=== PATIENT | female | born 1970 | race African-American/Black ===

== ENCOUNTER 2016-11-12 19:44 | Emergency (ER) | payer BC ==
[~2016-11-12] VITALS: Ht 175.3 cm; Wt 80.7 kg
[2016-11-12] MEDS ORDERED: ASPIRIN 325 MG TABLET ONE (20:21)
[2016-11-12 20:23] LABS: BASOPHILS % (AUTO) 0.4 % (0.0-2.0); DIFF TOTAL % 100 %; EOSINOPHILS # (AUTO) 0.1 /CMM (0.0-0.7); EOSINOPHILS % (AUTO) 0.6 % (0.0-6.0); HEMATOCRIT 35 % (33-45); HEMOGLOBIN 11.6 g/dL (11.5-14.8); LYMPHOCYTES # (AUTO) 2.5 /CMM (0.8-4.8); LYMPHOCYTES % (AUTO) 24.2 % (20.0-44.0); MEAN CORPUSCULAR HEMOGLOBIN 25 PG (26.0-33.0); MEAN CORPUSCULAR HGB CONC 33 g/dl (31.0-36.0); MEAN CORPUSCULAR VOLUME 77 fL (82-100); MONOCYTES # (AUTO) 0.5 /CMM (0.1-1.30); MONOCYTES % (AUTO) 5.1 % (2.0-12.0); NEUTROPHILS # (AUTO) 7.1 /CMM (1.8-8.9); NEUTROPHILS % (AUTO) 69.7 % (43.0-81.0); PLATELET COUNT (AUTO) 241 /CMM (150-450); RED BLOOD CELL COUNT(AUTO) 4.58 MIL/uL (4.0-5.2); WHITE BLOOD COUNT (AUTO) 10.2 K/uL (4.3-11.0)
[2016-11-12 20:30] LABS: ANION GAP 12 (5-14); CALCIUM, SERUM 8.5 mg/dL (8.5-10.1); CARBON DIOXIDE 29 mmol/L (21-32); CHLORIDE 107 mmol/L (98-107); CREATININE 0.9 mg/dL (0.6-1.3); GFR 82 mL/min (>60); GLUCOSE 94 mg/dL (74-106); POTASSIUM 3.7 mmol/L (3.5-5.1); SODIUM SERUM 144 mmol/L (136-145); UREA NITROGEN, BLOOD 8 mg/dL (7-18)
[2016-11-12] MEDS ORDERED: ASPIRIN 325 MG TABLET PO ONE (20:30)
[2016-11-12 20:38] LABS: TROPONIN I < 0.017 ng/mL (0.00-0.056)
[2016-11-12 20:45] LABS: INR 0.99 (0.87-1.13); PROTHROMBIN TIME 10.7 SECS (9.5-12.7)
[2016-11-12] MEDS ORDERED: IOHEXOL-300 100 ML VIAL IV ONE (21:37)
[2016-11-12] MEDS ORDERED: IV NS 0.9% 250 ML IV ONE (21:37)
[2016-11-12] MEDS ORDERED: CT SWABBABLE VALVE TRANS SET 1 EA INFUS.SET MC ONE (21:37)
[2016-11-12 23:10] VITALS: BP 128/67
== END 2016-11-12 23:11 | disposition home or self-care (01) ==
LOC: ER 19:46
DX: R20.0 Anesthesia of skin (principal); R20.2 Paresthesia of skin; F41.9 Anxiety disorder, unspecified; R07.89 Other chest pain
CPT/HCPCS: 36415; 70450; 71010; 71275; 80048; 84484; 85025; 85378; 85730; 93005; 99285; A4606; J7050; Q9967; Z7610

== ENCOUNTER 2017-07-15 20:59 | Emergency (ER) | payer BC ==
[~2017-07-15] VITALS: Ht 175.3 cm; Wt 82.1 kg
[2017-07-15 21:04] VITALS: BP 135/84
[2017-07-15] MEDS ORDERED: HYDROCODONE/APAP 5/325MG 1 EACH TABLET PO ONE (21:30)
[2017-07-15] MEDS ORDERED: SILVER SULFADIAZINE CREAM 25 GM TUBE TP ONE (21:30)
[2017-07-15] MEDS ORDERED: IBUPROFEN 600 MG TABLET PO ONE ×2 (21:30→21:38)
[2017-07-15] MEDS ORDERED: SILVER SULFADIAZINE CREAM 25 GM TUBE ONE (21:33)
[2017-07-15] MEDS ORDERED: HYDROCODONE/APAP 5/325MG 1 EACH TABLET ONE (21:38)
== END 2017-07-15 21:49 | disposition home or self-care (01) ==
LOC: ER 21:01
DX: T23.102A Burn of first degree of left hand, unspecified site, initial encounter (principal); X08.8XXA Exposure to other specified smoke, fire and flames, initial encounter; Y93.89 Activity, other specified; Y92.89 Other specified places as the place of occurrence of the external cause; Y99.8 Other external cause status
CPT/HCPCS: A4606; Z7610

== ENCOUNTER → 2018-01-29 | Emergency (ER) | payer SELFPAY ==
[~2018-01-29] VITALS: Ht 175.3 cm; Wt 83.9 kg
[~2018-01-29] MED LIST: HYDROCODONE/APAP 5/325MG 1 EACH TABLET ONE; HYDROCODONE/APAP 5/325MG 1 EACH TABLET PO ONE
[2018-01-29 18:33] VITALS: BP 144/94
--- NOTE | 2018-01-31 15:44 | NUR ---
SPOKE TO SWETA AUGUSTE RN REGARDING ISSUE WITH NORCO PO: SWETA STATES THAT SHE REMOVED NORCO 5/325 PO x 1 PRESCRIBED BY AR DEJESUS FOR PATIENT C/O DENTAL PAIN, HOWEVER SHE FORGOT TO ADMINISTRATION OF THE MEDICATION IN THE EMR. Zackery DEVI WAS NOTIFIED Addendum: 01/31/18 at 1651 by STAR SWETA FORGOT TO HERIBERTO OFF ADMINISTRATION OF THE MEDICATION IN THE EMR
== END | disposition home or self-care (01) ==
LOC: ER 18:38
DX: K08.89 Other specified disorders of teeth and supporting structures (principal); F10.10 Alcohol abuse, uncomplicated
CPT/HCPCS: A4606; Z7610